=== PATIENT | female | born 1980 | race African-American/Black ===

== ENCOUNTER 2025-01-15 23:22 | Emergency (ER) | payer SELFPAY ==
[~2025-01-15] VITALS: Ht 172.7 cm; Wt 94.5 kg
[2025-01-15 23:35] VITALS: BP 158/83; PULSE 70; RESP 20; TEMP 97.9; O2SAT 100
== END 2025-01-16 00:44 | disposition left against medical advice (07) ==
LOC: EMS 23:45
DX: K08.89 Other specified disorders of teeth and supporting structures (principal); Z53.21 Procedure and treatment not carried out due to patient leaving prior to being seen by health care provider
CPT/HCPCS: 99281; Z7502